=== PATIENT | male | born 1995 | race Hispanic/Latino ===

== ENCOUNTER 2017-09-30 08:08 | Inpatient (IN) | payer MEDICARE, OTHER ==
[2017-09-30 10:42] LABS: BASO % 0.3 % (0.0-2.0); EOS % 0.1 % (0.0-4.0); HEMOGLOBIN 14.4 g/dL (12.0-18.0); LYMPH # 1.2 K/uL (1.0-4.3); LYMPH % 8.5 % (20.0-40.0); MEAN CELL VOLUME 91.3 fl (80.0-94.0); MEAN CORPUSCULAR HEMOGLOBIN 31.7 pg (27.0-31.0); MEAN CORPUSCULAR HGB CONC 34.7 g/dL (33.0-37.0); MEAN PLATELET VOLUME 8.5 fl (7.2-11.7); MONO # 0.8 K/uL (0.0-0.8); MONO % 5.6 % (0.0-10.0); NEUT % 85.5 % (50.0-75.0); PLATELET COUNT 255 K/uL (130-400); RBC 4.53 Mil/uL (4.40-5.90); RED CELL DISTRIBUTION WIDTH 12.9 % (11.5-14.5); WHITE BLOOD COUNT 14.1 K/uL (4.8-10.8)
--- NOTE | 2017-09-30 10:58 | CT ---
PROCEDURE: CT HEAD WITHOUT CONTRAST. HISTORY: AMS. COMPARISON: No prior study available comparison TECHNIQUE: Axial computed tomography images were obtained through the head/brain without intravenous contrast. Radiation dose: Total exam DLP = 2086.15 mGy-cm. This CT exam was performed using one or more of the following dose reduction techniques: Automated exposure control, adjustment of the mA and/or kV according to patient size, and/or use of iterative reconstruction technique. . . Note that the examination is limited by motion artifact. FINDINGS: HEMORRHAGE: No acute parenchymal, subarachnoid or extra-axial hemorrhage. BRAIN: No obvious extra-axial mass or collection seen on this noncontrast study. Ventricular and sulcal size are within range of normal for this patient's stated age. VENTRICLES: No obstructive hydrocephalus. CALVARIUM: There are no acute calvarial fractures so far as can be seen. . There is mild flattening of the right occiput not likely due to premature closure of the right lambdoid suture. PARANASAL SINUSES: Unremarkable as visualized. No significant inflammatory changes. MASTOID AIR CELLS: Unremarkable as visualized. No inflammatory changes. OTHER FINDINGS: None. IMPRESSION: The limited motion degraded study with partial obscuration particularly of the skull base anatomy. . No acute intracranial hemorrhage. .
[2017-09-30 11:10] LABS: BLOOD UREA NITROGEN 10 mg/dl (9-20); CALCIUM 9.3 mg/dL (8.4-10.2); GFR AFRICAN-AMERICAN > 60; GFR NON-AFRICAN AMERICAN > 60
--- NOTE | 2017-09-30 11:27 | ED PDOC ---
HPI: Psych/Substance Abuse Time Seen by Provider: 09/30/17 08:25 Chief Complaint (Nursing): Psychiatric Evaluation Chief Complaint (Provider): Psychiatric evaluation ED Caveat: Altered Mental Status (non verbal) History Per: Patient Onset/Duration Of Symptoms: Hrs (today) Current Symptoms Are (Timing): Still Present Suicide/Self Injury Attempted (Context): None Involuntary Hold By: None Additional Complaint(s): Perico White is a 22 year old male, with no known past medical history, who was brought to the emergency department via EMS for medical and psychiatric evaluation onset today. Patient was found wandering in the streets by PD. On suspicion he had eloped or missing from a facility or house he was residing. Patient unable to give full history. Per EMS, patient might be autistic, and not verbal. PD currently searching for family or any information that could identify the patient. Limited history, patient is non verbal. PMD: None provided. Past Medical History Reviewed: Historical Data, Nursing Documentation, Vital Signs Vital Signs: Last Vital Signs Temp 96.4 F L 09/30/17 08:13 Pulse 109 H 09/30/17 08:13 Resp 21 09/30/17 08:13 BP 131/92 H 09/30/17 08:13 Pulse Ox 98 09/30/17 08:16 - Medical History Other PMH: Autism - Surgical History Surgical History: No Surg Hx - Family History Family History: States: No Known Family Hx - Home Medications Home Medications: Ambulatory Orders Medication Instructions Recorded No Known Home Med 09/30/17 - Allergies Allergies/Adverse Reactions: Allergies Allergy/AdvReac Type Severity Reaction Status Date / Time No Known Allergies Allergy Verified 09/30/17 12:26 Review of Systems Review Of Systems: ROS cannot be obtained secondary to pt's inabilty to answer questions. Physical Exam - Reviewed Nursing Documentation Reviewed: Yes Vital Signs Reviewed: Yes - Physical Exam Appears: Positive for: Well (comfortable), Non-toxic, No Acute Distress Head Exam: Positive for: ATRAUMATIC, NORMAL INSPECTION, NORMOCEPHALIC Skin: Positive for: Normal Color, Warm, Dry Eye Exam: Positive for: Normal appearance, EOMI, PERRL ENT: Positive for: Normal ENT Inspection Neck: Positive for: Painless ROM, Supple Cardiovascular/Chest: Positive for: Regular Rate, Rhythm. Negative for: Murmur Respiratory: Positive for: Normal Breath Sounds. Negative for: Respiratory Distress Gastrointestinal/Abdominal: Positive for: Normal Exam, Soft. Negative for: Tenderness, Guarding, Rebound Extremity: Positive for: Normal ROM (upper and lower extremities). Negative for : Deformity, Swelling Neurologic/Psych: Positive for: Alert (awake ). Negative for: Oriented (unable to establish. Non verbal) - Laboratory Results Result Diagrams: 10/01/17 05:30 10/01/17 05:30 - ECG O2 Sat by Pulse Oximetry: 98 (RA) Pulse Ox Interpretation: Normal Medical Decision Making Medical Decision Making: Initial Impression: AMS, medical and psychiatric evaluation. Missing person. Differential diagnosis includes autism and MR. Initial Plan: --Head w/o contrast [CT] --Alcohol serum --BMP --Drug screen, urine --Crisis evaluation --Urine dipstick --CBC w/ differential --Reevaluation 10:[address] FINDINGS: HEMORRHAGE: No acute parenchymal, subarachnoid or extra-axial hemorrhage. BRAIN: No obvious extra-axial mass or collection seen on this noncontrast study. Ventricular and sulcal size are within range of normal for this patient's stated age. VENTRICLES: No obstructive hydrocephalus. CALVARIUM: There are no acute calvarial fractures so far as can be seen. . There is mild flattening of the right occiput not likely due to premature closure of the right lambdoid suture. PARANASAL SINUSES: Unremarkable as visualized. No significant inflammatory changes. MASTOID AIR CELLS: Unremarkable as visualized. No inflammatory changes. OTHER FINDINGS: None. IMPRESSION: The limited motion degraded study with partial obscuration particularly of the skull base anatomy. . No acute intracranial hemorrhage. . 11:50 -Mother is at bedside and identified patient. Per mother, pt has a history of autism and agrees to psych eval. She claims she is unable to take care of him and patient is unable to take care of himself. 13:30 -Patient will be screened by [facility]. 14:00 -Vital signs are stable. Labs and imaging reviewed. CXR pending Scribe Attestation: Documented by Jones Dillon, acting as a scribe for Jeffrey Stringer MD Provider Scribe Attestation: All medical record entries made by the Scribe were at my direction and personally dictated by me. I have reviewed the chart and agree that the record accurately reflects my personal performance of the history, physical exam, medical decision making, and the department course for this patient. I have also personally directed, reviewed, and agree with the discharge instructions and disposition. Disposition - Clinical Impression Clinical Impression: Pneumonia, Autism - Patient ED Disposition Is Patient to be Admitted: Transfer of Care Counseled Patient/Family Regarding: Studies Performed, Diagnosis - Disposition Disposition: Transfer of Care Disposition Time: 15:00 Condition: FAIR Patient Signed Over To: Radha Hoover
[2017-09-30 12:53] LABS: LYMPHOCYTE 9 % (20-50); MONOCYTE 4 % (0-10); NEUTROPHIL 87 % (42-75); TOTAL CELLS COUNTED 100
[2017-09-30 12:54] LABS: PLATELET ESTIMATE NORMAL (NORMAL)
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
--- NOTE | 2017-09-30 15:40 | RAD ---
HISTORY: medical clearance COMPARISON: No prior. FINDINGS: LUNGS: No active pulmonary disease. PLEURA: No significant pleural effusion identified, no pneumothorax apparent. CARDIOVASCULAR: Normal. OSSEOUS STRUCTURES: No significant abnormalities. VISUALIZED UPPER ABDOMEN: Normal. OTHER FINDINGS: None. IMPRESSION: No active disease.
[2017-09-30] MEDS ORDERED: cefTRIAXone (Rocephin) 1 gm Inj ONE (15:59)
[2017-09-30] MEDS ORDERED: Azithromycin 500 MG in Sodium Chloride 0.9% 250 ML IVPB ONE (16:00)
[2017-09-30 16:04] LABS: URINE BILIRUBIN NEGATIVE (NEGATIVE); URINE BLOOD NEGATIVE (NEGATIVE); URINE CLARITY SLIGHTY-CLOUDY (Clear); URINE COLOR YELLOW (YELLOW); URINE GLUCOSE (UA) NEG (Normal); URINE LEUKOCYTE ESTERASE NEG Leu/uL (Negative); URINE PROTEIN NEGATIVE (NEGATIVE)
[2017-09-30 16:21] LABS: BARBITURATES, UR NEGATIVE (NEGATIVE); BENZODIAZEPINES, UR NEGATIVE (NEGATIVE); OPIATES, UR NEGATIVE (NEGATIVE); PHENCYCLIDINE, UR NEGATIVE (NEGATIVE)
[2017-09-30 16:33] LABS: VENOUS BLOOD GAS BASE EXCESS 3.9 mmol/L (0.0-2.0); VENOUS BLOOD GAS PCO2 58 mmHg (40-60); VENOUS BLOOD GAS PO2 23 mm/Hg (30-55); VENOUS BLOOD PH 7.34 (7.32-7.43)
--- NOTE | 2017-09-30 23:59 | ED PDOC ---
- Laboratory Results Result Diagrams: 09/30/17 09:59 09/30/17 09:59 - ECG O2 Sat by Pulse Oximetry: 99 - Progress ED Course And Treament: 3p Rec'd endorsement from Dr Stringer. Pt with autism and progressively aggressive/defiant behavior. For [facility] screen. Pending CXR. 330p CXR demonstrates infiltrate. Labs with elevated WBC. REJI mother. Pt to be admitted medically with inpatient psych management consult. [facility]. Disposition Counseled Patient/Family Regarding: Studies Performed, Diagnosis - Clinical Impression Clinical Impression: Pneumonia, Autism - POA Present On Arrival: None - Disposition Disposition: Admitted as In-Patient Disposition Time: 15:30 Condition: FAIR
[2017-10-01 07:37] LABS: HEMOGLOBIN 13.6 g/dL (12.0-18.0); MEAN CELL VOLUME 91.6 fl (80.0-94.0); MEAN CORPUSCULAR HEMOGLOBIN 31.6 pg (27.0-31.0); MEAN CORPUSCULAR HGB CONC 34.5 g/dL (33.0-37.0); RBC 4.29 Mil/uL (4.40-5.90); RED CELL DISTRIBUTION WIDTH 12.9 % (11.5-14.5); WHITE BLOOD COUNT 7.1 K/uL (4.8-10.8)
[2017-10-01 07:43] LABS: ALB/GLOB RATIO 1.4 (1.0-2.1); ALBUMIN 4.1 g/dL (3.5-5.0); ALT/SGPT 33 U/L (21-72); AST/SGOT 21 U/L (17-59); BLOOD UREA NITROGEN 15 mg/dl (9-20); CALCIUM 9.3 mg/dL (8.4-10.2); GFR AFRICAN-AMERICAN > 60; GFR NON-AFRICAN AMERICAN > 60
[2017-10-01] MEDS ORDERED: Influenza Vaccine 18yr & older 0.5 ML/45 MCG SYR IM ONE (08:00)
[2017-10-01] MEDS: Azithromycin 500 MG in Sodium Chloride 0.9% 250 ML IVPB SCH (08:38)
[2017-10-01] MEDS: Enoxaparin 40 mg Syringe SC SCH (09:22)
--- NOTE | 2017-10-01 15:30 | PQF GENQUE ---
Dr. Aleman, Please specify type of pneumonia in the progress notes: if in agreement with dx. Note: CAP, HAP, and HCAP indicate where the pneumonia was acquired, not a specific type. i.e Aspiration pneumonia Please document specific aspirate (food, liquids, etc.) Please indicate if this is postprocedural Bacterial (specify organism) Bronchopneumonia (specify organism) Interstitual pneumonia Organizing pneumonia/BOOP Pneumonia with influenza, gilberto flu, or H1N1 flu RSV pneumonia Tuberculosis, pulmonary Viral pneumonia Other pneumonia (specify organism or type) Clinically unable to determine Unknown Note: Probable and suspected conditions can be coded as if they exist if still documented at the time of discharge. -- Please specify the organism causing the pneumonia:if known after the work up completed OR: Disagree CXR: Impression: No active disease. Temp.: 96.4->99.5->98.1 Pulse:109->85->74 WBC:14.1 left shift ER: Clinical Impression: Pneumonia, Autism This form is a permanent part of the medical record Clarification of your documentation is requested to better reflect the severity of illness and intensity of treatment of your patient. Indicators present [] Specify: [] [] Specify: [] [] Specify: [] [] Specify: [] Location in the medical record that reflects the above clinical findings: [] Treatment Provided: [] PHYSICIAN'S RESPONSE Based on your medical judgment of the clinical indicators outlined above please clarify the following: [] Practitioner response [] If unable to determine, please check the box, sign and date. Present On Admission (POA) Indicator: [] Present at the time of admission [] Not present at the time of admission [] Clinically Undetermined In responding to this query, please exercise your independent professional judgment. The fact that a question is asked does not imply that any particular answer is desired or expected. Thank you for your clarification on this documentation. If you have any questions please call. * Thank you, Blossom Hernández RN ext. #[phone] MTDD
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
[2017-10-02] MEDS: Enoxaparin 40 mg Syringe SC SCH (09:00)
[2017-10-02] MEDS: Azithromycin 500 MG in Sodium Chloride 0.9% 250 ML IVPB SCH (09:02)
--- NOTE | 2017-10-02 22:16 | CP.PCM.PN ---
Subjective - Date & Time of Evaluation Date of Evaluation: 10/02/17 Time of Evaluation: 16:10 - Subjective Subjective: Sitting in bed, does not appear to be in distress. Covers ears when I walk into the room. 1:1 sitter present at bedside Per nursing staff, no events overnight Objective - Vital Signs/Intake and Output Vital Signs (last 24 hours): Temp Pulse Resp BP Pulse Ox 98.2 F 81 18 107/56 L 97 10/02/17 16:58 10/02/17 16:58 10/02/17 16:58 10/02/17 16:58 10/02/17 16:58 - Medications Medications: Current Medications Aripiprazole (Abilify) 2 mg PO DAILY GATO Last Admin: 10/02/17 09:00 Dose: 2 mg Enoxaparin Sodium (Lovenox) 40 mg SC DAILY GATO PRN Reason: Protocol Last Admin: 10/02/17 09:00 Dose: 40 mg Azithromycin 500 mg/ Sodium (Chloride) 250 mls @ 250 mls/hr IVPB DAILY GATO PRN Reason: Protocol Last Admin: 10/02/17 09:02 Dose: 250 mls/hr Ceftriaxone Sodium 1 gm/ (Sodium Chloride) 100 mls @ 100 mls/hr IVPB DAILY GATO PRN Reason: Protocol Last Admin: 10/02/17 09:01 Dose: 100 mls/hr - Labs Labs: 10/01/17 05:30 10/01/17 05:30 - Constitutional Appears: Well, No Acute Distress - Head Exam Head Exam: ATRAUMATIC, NORMOCEPHALIC - Respiratory Exam Respiratory Exam: Clear to Ausculation Bilateral, NORMAL BREATHING PATTERN - Cardiovascular Exam Cardiovascular Exam: REGULAR RHYTHM, +S1, +S2 - GI/Abdominal Exam GI & Abdominal Exam: Soft, Normal Bowel Sounds - Neurological Exam Neurological Exam: Alert, Altered - Skin Skin Exam: Normal Color, Warm Assessment and Plan (1) Pneumonia Assessment & Plan: Continue with same antibiotics WBC has normalized No fevers IVF continue to monitor Status: Acute (2) Autism Assessment & Plan: APS was called Psych on board Status: Acute
[2017-10-03] MEDS: Enoxaparin 40 mg Syringe SC SCH (09:10)
[2017-10-03] MEDS: Azithromycin 500 MG in Sodium Chloride 0.9% 250 ML IVPB SCH (10:16)
--- NOTE | 2017-10-03 17:27 | CP.PCM.PN ---
Subjective - Date & Time of Evaluation Date of Evaluation: 10/03/17 Time of Evaluation: 11:05 - Subjective Subjective: In bed, no distress noted. No overnight events per nursing staff. No fever Objective - Vital Signs/Intake and Output Vital Signs (last 24 hours): Temp Pulse Resp BP Pulse Ox 98.3 F 92 H 18 107/63 97 10/03/17 16:26 10/03/17 16:26 10/03/17 16:26 10/03/17 16:26 10/03/17 16:26 - Medications Medications: Current Medications Aripiprazole (Abilify) 2 mg PO DAILY [facility] Last Admin: 10/03/17 09:09 Dose: 2 mg Enoxaparin Sodium (Lovenox) 40 mg SC DAILY GATO PRN Reason: Protocol Last Admin: 10/03/17 09:10 Dose: 40 mg Azithromycin 500 mg/ Sodium (Chloride) 250 mls @ 250 mls/hr IVPB DAILY GATO PRN Reason: Protocol Last Admin: 10/03/17 10:16 Dose: 250 mls/hr Ceftriaxone Sodium 1 gm/ (Sodium Chloride) 100 mls @ 100 mls/hr IVPB DAILY GATO PRN Reason: Protocol Last Admin: 10/03/17 09:10 Dose: 100 mls/hr - Labs Labs: 10/01/17 05:30 10/01/17 05:30 - Constitutional Appears: Well, No Acute Distress - Head Exam Head Exam: ATRAUMATIC, NORMOCEPHALIC - Respiratory Exam Respiratory Exam: Clear to Ausculation Bilateral, NORMAL BREATHING PATTERN - Cardiovascular Exam Cardiovascular Exam: REGULAR RHYTHM, +S1, +S2 - GI/Abdominal Exam GI & Abdominal Exam: Soft, Normal Bowel Sounds - Neurological Exam Neurological Exam: Alert, Altered - Psychiatric Exam Psychiatric exam: Normal Affect - Skin Skin Exam: Normal Color, Warm Assessment and Plan (1) Pneumonia Assessment & Plan: Seems to be improving, no fever Continue with same antibiotics continue to monitor Status: Acute (2) Autism Assessment & Plan: APS was called psych on board Patient was started on Abilify Status: Acute
[2017-10-04] MEDS: Enoxaparin 40 mg Syringe SC SCH ×2 (09:17→10:42)
--- NOTE | 2017-10-04 14:44 | CP.PCM.CON ---
History of Present Illness - History of Present Illness History of Present Illness: t is 22 years old autistic male brought to ER after mother called police , pt was attending school, and eloped , was found wandering on the street pt was to be screened for involuntary admission to psychiatry as mother mentioned pt has been aggressive physically towards her and towards his teachers , pt currently non compliant with psychiatric treatment or follow up,pt however was found to have pneumonia and admitted to medical floor pt was started on abilify 2mg , as per staff, pt did not exhibit behavior disturbances and no reported episodes of physical aggression pt on evaluation seen in bed smiling, poor eye contact, watching TV and when approached, putting his hands over his ears Past Patient History - Past Social History Smoking Status: Never Smoked - CARDIAC Hx Cardiac Disorders: No - PULMONARY Hx Respiratory Disorders: No Hx Tuberculosis: No - NEUROLOGICAL HX Cerebrovascular Accident: No Hx Seizures: No - RENAL Hx Chronic Kidney Disease: No - ENDOCRINE/METABOLIC Hx Endocrine Disorders: No - HEMATOLOGICAL/ONCOLOGICAL Hx Blood Disorders: No Hx Cancer: No Hx Human Immunodeficiency Virus (HIV): No - INTEGUMENTARY Hx Dermatological Problems: No - MUSCULOSKELETAL/RHEUMATOLOGICAL Hx Musculoskeletal Disorders: No Hx Falls: No - GASTROINTESTINAL Hx Gastrointestinal Disorders: No - GENITOURINARY/GYNECOLOGICAL Hx Genitourinary Disorders: No Hx Sexually Transmitted Disorders: No - PSYCHIATRIC Hx Psychophysiologic Disorder: No Hx Substance Use: No - SURGICAL HISTORY Hx Surgeries: No Hx Abdominal Aortic Aneurysm Repair: No - ANESTHESIA Hx Anesthesia: No Hx Anesthesia Reactions: No Hx Malignant Hyperthermia: No Has any member of the family had a problem w/ anesthesia?: No Meds Allergies/Adverse Reactions: Allergies Allergy/AdvReac Type Severity Reaction Status Date / Time No Known Allergies Allergy Verified 09/30/17 12:26 - Medications Medications: Current Medications Aripiprazole (Abilify) 2 mg PO DAILY GATO Last Admin: 10/04/17 09:17 Dose: 2 mg Azithromycin (Zithromax) 500 mg PO DAILY GATO PRN Reason: Protocol Azithromycin 500 mg/ Sodium (Chloride) 250 mls @ 250 mls/hr IVPB DAILY GATO PRN Reason: Protocol Last Admin: 10/03/17 10:16 Dose: 250 mls/hr Physical Exam - Psychiatric Exam Additional comments: pt seen in bed, calm, watching TV, poor eye contact and communication as expected from pt with autistic spectrum disorder, no reported behavioral disturbances Results - Vital Signs Recent Vital Signs: Last Vital Signs Temp 98.1 F 10/04/17 09:00 Pulse 88 10/04/17 09:00 Resp 20 10/04/17 09:00 BP 123/79 10/04/17 09:00 Pulse Ox 98 10/04/17 09:00 - Labs Result Diagrams: 10/01/17 05:30 10/01/17 05:30 Assessment & Plan - Assessment and Plan (Free Text) Assessment: autistic disorder Plan: patient at current mental status calm, cooperative with treatment , no episodes of aggression through out his stay on the medical floor pt at current mental status not danger to self or others, pt at current mental status psychiatricaly cleared for discharge recommend nursing home social worker to contact DD services at [facility] to arrange for further outpatient services for patient on discharge
[2017-10-04] MEDS: Azithromycin 500 MG in Sodium Chloride 0.9% 250 ML IVPB SCH (15:32)
--- NOTE | 2017-10-04 22:51 | CP.PCM.PN ---
Subjective - Date & Time of Evaluation Date of Evaluation: 10/04/17 Time of Evaluation: 15:20 - Subjective Subjective: In bed, covers ears when I walk in room. In no distress. 1:1 sitter at bedside has no fever, no overnight events per nursing staff. Pt has remained calm Objective - Vital Signs/Intake and Output Vital Signs (last 24 hours): Temp Pulse Resp BP Pulse Ox 99.1 F 83 20 125/81 97 10/04/17 17:00 10/04/17 17:00 10/04/17 17:00 10/04/17 17:00 10/04/17 17:00 - Medications Medications: Current Medications Aripiprazole (Abilify) 2 mg PO DAILY GATO Last Admin: 10/04/17 09:17 Dose: 2 mg Azithromycin (Zithromax) 500 mg PO DAILY GATO PRN Reason: Protocol Last Admin: 10/04/17 15:30 Dose: 500 mg Azithromycin 500 mg/ Sodium (Chloride) 250 mls @ 250 mls/hr IVPB DAILY GATO PRN Reason: Protocol Last Admin: 10/04/17 15:32 Dose: Not Given - Labs Labs: 10/01/17 05:30 10/01/17 05:30 - Constitutional Appears: Well, No Acute Distress - Head Exam Head Exam: ATRAUMATIC, NORMOCEPHALIC - Respiratory Exam Respiratory Exam: Clear to Ausculation Bilateral, NORMAL BREATHING PATTERN - Cardiovascular Exam Cardiovascular Exam: REGULAR RHYTHM, +S1, +S2 - GI/Abdominal Exam GI & Abdominal Exam: Soft, Normal Bowel Sounds - Neurological Exam Neurological Exam: Alert, Altered - Psychiatric Exam Psychiatric exam: Normal Affect - Skin Skin Exam: Normal Color, Warm Assessment and Plan (1) Pneumonia Assessment & Plan: Doing well. Antibiotics switched to PO Medically stable Status: Acute (2) Autism Assessment & Plan: Psych reconsulted, pt is stable for d/c and requires no acute inpatient admission D/c planning creative services producer on board Status: Acute
[2017-10-05 00:36] VITALS: RESP 18; O2SAT 95
[2017-10-05 08:35] VITALS: BP 99/62; PULSE 95; TEMP 98.4
[2017-10-05] MEDS: Azithromycin 500 MG in Sodium Chloride 0.9% 250 ML IVPB SCH (09:06)
--- NOTE | 2017-10-05 11:41 | CP.PCM.PCO ---
Assessment/Plan - Assessment/Plan Assessment (Free Text): Pt's mother at bedside, made aware pt is medically stable to be discharged home and that pt was seen and cleared for d/c home by psychiatrist. Pt's mother states she will take pt home and he will return to school tomorrow. Marisol INGRAM and Shy WRAY also present at bedside and spoke to pt's mother. Spoke to Dr. Aleman, pt is cleared for d/c home on Z-zaria, Rx given. Medical clearance note given to pt's mother.
--- NOTE | 2017-10-05 18:59 | CP.PCM.DIS ---
Provider - Provider Date of Admission: 09/30/17 15:45 Attending physician: Marquis Aleman MD Time Spent in preparation of Discharge (in minutes): 25 Diagnosis - Discharge Diagnosis (1) Pneumonia Status: Acute (2) Autism Status: Acute Hospital Course - Lab Results Lab Results: Micro Results 09/30/17 17:45 Blood Blood Culture - Final NO GROWTH AFTER 5 DAYS 09/30/17 17:45 Blood Gram Stain - Final TEST NOT PERFORMED 09/30/17 15:50 Blood Blood Culture - Final NO GROWTH AFTER 5 DAYS Most Recent Lab Values WBC 7.1 K/uL (4.8-10.8) 10/01/17 05:30 RBC 4.29 Mil/uL (4.40-5.90) L 10/01/17 05:30 Hgb 13.6 g/dL (12.0-18.0) 10/01/17 05:30 Hct 39.3 % (35.0-51.0) 10/01/17 05:30 MCV 91.6 fl (80.0-94.0) 10/01/17 05:30 MCH 31.6 pg (27.0-31.0) H 10/01/17 05:30 MCHC 34.5 g/dL (33.0-37.0) 10/01/17 05:30 RDW 12.9 % (11.5-14.5) 10/01/17 05:30 Plt Count 230 K/uL (130-400) 10/01/17 05:30 MPV 8.5 fl (7.2-11.7) 09/30/17 09:59 Neut % (Auto) 85.5 % (50.0-75.0) H 09/30/17 09:59 Lymph % (Auto) 8.5 % (20.0-40.0) L 09/30/17 09:59 [place] % (Auto) 5.6 % (0.0-10.0) 09/30/17 09:59 Eos % (Auto) 0.1 % (0.0-4.0) 09/30/17 09:59 Baso % (Auto) 0.3 % (0.0-2.0) 09/30/17 09:59 Neut # (Auto) 12.0 K/uL (1.8-7.0) H 09/30/17 09:59 Lymph # (Auto) 1.2 K/uL (1.0-4.3) 09/30/17 09:59 [place] # (Auto) 0.8 K/uL (0.0-0.8) 09/30/17 09:59 Eos # (Auto) 0.0 K/uL (0.0-0.7) 09/30/17 09:59 Baso # (Auto) 0.0 K/uL (0.0-0.2) 09/30/17 09:59 Neutrophils % (Manual) 87 % (42-75) H 09/30/17 09:59 Lymphocytes % (Manual) 9 % (20-50) L 09/30/17 09:59 Monocytes % (Manual) 4 % (0-10) 09/30/17 09:59 Platelet Estimate Normal (NORMAL) 09/30/17 09:59 RBC Morphology Normal (NORMAL) 09/30/17 09:59 pO2 23 mm/Hg (30-55) L 09/30/17 16:25 VBG pH 7.34 (7.32-7.43) 09/30/17 16:25 VBG pCO2 58 mmHg (40-60) 09/30/17 16:25 VBG HCO3 26.3 mmol/L 09/30/17 16:25 VBG Total CO2 33.1 mmol/L (22-28) H 09/30/17 16:25 VBG O2 Sat (Calc) 38.0 % (40-65) L 09/30/17 16:25 VBG Base Excess 3.9 mmol/L (0.0-2.0) H 09/30/17 16:25 VBG Potassium 3.9 mmol/L (3.6-5.2) 09/30/17 16:25 Sodium 141.0 mmol/L (132-148) 09/30/17 16:25 Chloride 106.0 mmol/L (98-107) 09/30/17 16:25 Glucose 91 mg/dL (75-110) 09/30/17 16:25 Lactate 1.2 mmol/L (0.7-2.1) 09/30/17 16:25 FiO2 21.0 % 09/30/17 16:25 Sodium 145 mmol/l (132-148) 10/01/17 05:30 Potassium 3.9 MMOL/L (3.6-5.0) 10/01/17 05:30 Chloride 105 mmol/L (98-107) 10/01/17 05:30 Carbon Dioxide 26 mmol/L (22-30) 10/01/17 05:30 Anion Gap 18 (10-20) 10/01/17 05:30 BUN 15 mg/dl (9-20) 10/01/17 05:30 Creatinine 0.8 mg/dl (0.8-1.5) 10/01/17 05:30 Est GFR ( Amer) > 60 10/01/17 05:30 Est GFR (Non-Af Amer) > 60 10/01/17 05:30 Random Glucose 96 mg/dL (75-110) 10/01/17 05:30 Calcium 9.3 mg/dL (8.4-10.2) 10/01/17 05:30 Total Bilirubin 0.8 mg/dl (0.2-1.3) 10/01/17 05:30 AST 21 U/L (17-59) 10/01/17 05:30 ALT 33 U/L (21-72) 10/01/17 05:30 Alkaline Phosphatase 49 U/L (38-126) 10/01/17 05:30 Total Protein 7.1 G/DL (6.3-8.2) 10/01/17 05:30 Albumin 4.1 g/dL (3.5-5.0) 10/01/17 05:30 Globulin 3.0 gm/dL (2.2-3.9) 10/01/17 05:30 Albumin/Globulin Ratio 1.4 (1.0-2.1) 10/01/17 05:30 Vitamin B12 201 pg/mL (239-931) L 10/01/17 05:30 TSH 3rd Generation 1.44 mIU/ML (0.46-4.68) 10/01/17 05:30 Venous Blood Potassium 3.9 mmol/L (3.6-5.2) 09/30/17 16:25 Urine Color Yellow (YELLOW) 09/30/17 15:30 Urine Clarity Slighty-cloudy (Clear) 09/30/17 15:30 Urine pH 7.0 (5.0-8.0) 09/30/17 15:30 Ur Specific [place] 1.019 (1.003-1.030) 09/30/17 15:30 Urine Protein Negative mg/dL (NEGATIVE) 09/30/17 15:30 Urine Glucose (UA) Neg mg/dL (Normal) 09/30/17 15:30 Urine Ketones Negative mg/dL (NEGATIVE) 09/30/17 15:30 Urine Blood Negative (NEGATIVE) 09/30/17 15:30 Urine Nitrate Negative (NEGATIVE) 09/30/17 15:30 Urine Bilirubin Negative (NEGATIVE) 09/30/17 15:30 Urine Urobilinogen 4.0 mg/dL (0.2-1.0) 09/30/17 15:30 Ur Leukocyte Esterase Neg Bethanie/uL (Negative) 09/30/17 15:30 Urine RBC (Auto) 4 /hpf (0-3) H 09/30/17 15:30 Urine Microscopic WBC 1 /hpf (0-5) 09/30/17 15:30 Urine Opiates Screen Negative (NEGATIVE) 09/30/17 15:30 Urine Methadone Screen Negative (NEGATIVE) 09/30/17 15:30 Ur Barbiturates Screen Negative (NEGATIVE) 09/30/17 15:30 Ur Phencyclidine Scrn Negative (NEGATIVE) 09/30/17 15:30 Ur Amphetamines Screen Negative (NEGATIVE) 09/30/17 15:30 U Benzodiazepines Scrn Negative (NEGATIVE) 09/30/17 15:30 U Oth Cocaine Metabols Negative (NEGATIVE) 09/30/17 15:30 U Cannabinoids Screen Negative (NEGATIVE) 09/30/17 15:30 Alcohol, Quantitative < 10 mg/dl (0-10) 09/30/17 09:59 - Hospital Course Hospital Course: Patient is a 22 year old autistic male who was found wandering and brought to the hospital by the police. The patient could not provide any medical history due to being autistic but was found to have pneumonia. The patient responded well to antibiotics treatment. The patient was also evaluated by psych and cleared for d/c with outpatient psychiatry follow up. The patient was discharged home on Z-nic. Discharge Exam - Head Exam Head Exam: ATRAUMATIC, NORMAL INSPECTION, NORMOCEPHALIC - Respiratory Exam Respiratory Exam: Clear to PA & Lateral, NORMAL BREATHING PATTERN - Cardiovascular Exam Cardiovascular Exam: REGULAR RHYTHM, +S1, +S2 - GI/Abdominal Exam GI & Abdominal Exam: Normal Bowel Sounds, Soft - Neurological Exam Neurological exam: Alert, Altered - Psychiatric Exam Psychiatric exam: Normal Affect - Skin Skin Exam: Normal Color, Warm Discharge Plan - Discharge Medications Prescriptions: Azithromycin [Z-Nic] 250 mg PO DAILY #6 tab - Follow Up Plan Condition: STABLE Disposition: HOME/ ROUTINE Instructions: Autism Spectrum Disorder, Pneumonia, Adult (DC) Referrals: Tiffanie Hall MD [Medical Doctor] - Marquis Aleman MD [Staff Provider] -
--- NOTE | 2017-10-06 12:32 | IP.NPCORE ---
Pneumonia Progress Notes - Oxygenation Assessment (REQUIRED) Documented 02: Yes O2 Saturation: 95 Oxygen Delivery Method: Room Air Documented P02: Yes - Blood Cultures (REQUIRED) Culture drawn: Yes - Initial Antibiotic Initial Antibiotic given within Four Hours:: Yes - Appropriate Antibiotic Appropriate Antibiotic within 24 hours of Admission:: Yes
== END 2017-10-05 11:50 | disposition home or self-care (01) | DRG 194 ==
LOC: H.ER 08:08 → EDBD 08:08 → H.ERHOLD 15:45 → H.MEDSURG1 10-01 00:05
PROVIDERS: ADMIT Internal Medicine; ATTEND Internal Medicine
PROC: 3E0234Z Introduction of Serum, Toxoid and Vaccine into Muscle, Percutaneous Approach (ICD-10-PCS; principal; 2017-10-01)
DX: J18.9 Pneumonia, unspecified organism (principal); F84.0 Autistic disorder; Z91.19 Patient's noncompliance with other medical treatment and regimen; Z91.83 Wandering in diseases classified elsewhere; Z23 Encounter for immunization